=== PATIENT | female | born 1995 | race Caucasian/White ===

== ENCOUNTER 2020-07-09 17:50 | Emergency (ER) | payer MEDICAID, SELFPAY ==
--- NOTE | ~2020-07-09 | XR_ITS ---
XR chest 2V DATE: 07/09/2020 20:11 INDICATION: Central stabbing sternal chest pain for 3 days, radiating to upper abdomen TECHNIQUE: PA and lateral views COMPARISON: 07/26/2012 two-view chest FINDINGS: Normal heart size. No hilar or mediastinal enlargement. No pulmonary infiltrate or consolid ation, pleural effusion or pulmonary vascular congestion or pneumothorax. IMPRESSION: No active cardiopulmonary disease Reviewed, dictated and finalized at location A. N PROMOTIONS SPECIALIST
[2020-07-09 18:21] VITALS: BP 121/68; PULSE 125; RESP 16; TEMP 36.8; O2SAT 97
--- NOTE | 2020-07-09 18:25 | ECG_ITS ---
Measurements Intervals [place] Rate: 125 P: 75 ND: 124 QRS: 75 QRSD: 88 T: 20 QT: 336 QTc: 485 Interpretive Statements SINUS TACHYCARDIA INCOMPLETE RIGHT BUNDLE BRANCH BLOCK BORDERLINE ST-T WAVE ABNORMALITY- ANTEROLAT/INF LEADS ABNORMAL ECG Electronically Signed On 07-10-2020 7:55:40 DIGITAL TRAFFIC COORDINATOR by Kemal Hawkins D.O.
[2020-07-09 18:53] LABS: Partial Thromboplastin Time 27.2 SECONDS (22.3-36.8); Prothrombin Time 13.7 Seconds (11.1-14.7)
[2020-07-09 19:02] LABS: Anion Gap 11 mmol/L (8-16); Basophils Percent Auto 0.6 % (0.2-1.2); Blood Urea Nitrogen 11 mg/dL (7-17); Calcium 9.7 mg/dL (8.4-10.2); Carbon Dioxide 26 mmol/L (22-30); Chloride 101 mmol/L (98-107); Eosinophils Absolute Auto 0.1 K/mm3 (0-0.3); Estimated CRCL calculation 86 ml/min; Estimated Glomerular Filt Rate > 60; Glucose 107 mg/dL (65-105); Hematocrit 41.7 % (37.0-47.0); Hemoglobin 14.3 g/dL (12.0-15.0); Immature Granulocyte Absolute 0.02 K/mm3 (0.00-0.031); Immature Granulocyte Percent A 0.3 % (0-0.5); Lymphocytes Absolute Auto 1.87 K/mm3 (0.9-3.2); Lymphocytes Percent Auto 25.8 % (18.3-44.2); Mean Corpuscular HGB Conc 34.3 g/dl (32-36); Mean Corpuscular Hemoglobin 30.4 pg (26-34); Mean Corpuscular Volume 88.5 fl (80-100); Mean Platelet Volume 9.2 fl (7.4-10.4); Monocytes Absolute Auto 0.4 K/mm3 (0.1-0.6); Monocytes Percent Auto 5.9 % (2.6-8.5); Neutrophils Absolute Auto 4.8 K/mm3 (1.3-6.7); Neutrophils Percent Auto 66.4 % (45.5-73.1); Platelet Count Result 275 k/mm3 (150-375); Potassium 3.4 mmol/L (3.4-5.0); Red Blood Count 4.71 M/mm3 (4.2-5.4); Red Cell Distribution Width 11.9 % (11.5-14.5); Sodium 138 mmol/L (137-145); White Blood Count 7.2 K/mm3 (4.5-10.0)
[2020-07-09 19:14] LABS: Troponin I < 0.012 ng/mL (0.000-0.034)
[2020-07-09 21:28] LABS: D Dimer 0.29 ug/mL (<0.48)
[2020-07-09 21:52] LABS: Troponin I < 0.012 ng/mL (0.000-0.034)
--- NOTE | 2020-07-09 21:58 | ED.CHESTPAIN ---
HPI - Chest Pain General Chief Complaint: Chest Pain Stated Complaint: chest pain Time Seen by Provider: 07/09/20 20:57 History of Present Illness HPI narrative: Patient is a 25-year-old female who presents ER with central chest pressure. Ongoing for the last 2 days. Nonradiating. No worsening with exertion/movement/deep breath. No runny nose/sore throat/cough. No lower extremity swelling. She does not smoke and she is not on control. No history of PE. No modification with laying down. She took some heartburn medication which did not improve her symptoms either. Due to persistence came to the ER for evaluation. Related Data Allergies Allergy/AdvReac Type Severity Reaction Status Date / Time No Known Allergies Allergy Unverified 07/09/20 20:55 Review of Systems Review of Systems: All systems reviewed & are unremarkable except as noted in HPI and below Constitutional: Constitutional: Denies chills, Denies fever(s) and Denies weakness ENT: Denies nasal congestion and Denies sore throat Cardiovascular: Cardiovascular: Reports chest pain, Denies rapid heart rate and Denies radiating jaw, neck or arm pain Respiratory: Respiratory: Denies cough, Denies dyspnea and Denies wheezing Gastrointestinal: Gastrointestinal: Denies abdominal pain, Denies nausea and Denies vomiting Musculoskeletal: Musculoskeletal: Denies back pain PMFSH Past Medical History Medical History (Updated 07/09/20 @ 22:05 by Donaldo Hagan MD) POTS (postural orthostatic tachycardia syndrome) Surgical History Surgical History (Updated 07/09/20 @ 22:00 by Donaldo Hagan MD) No history of previous surgery Social History Social History (Updated 07/09/20 @ 22:00 by Donaldo Hagan MD) Smoking status: Never smoker Exam Narrative: Exam Narrative: GENERAL: Well-appearing, well-nourished, and in no acute distress. HEAD: Normocephalic, atraumatic. ENT: Mucous membranes moist. CHEST: Clear to auscultation. No respiratory distress. No reproducible tenderness. HEART: Regular rate and rhythm. Normal peripheral pulses. ABDOMEN: Soft, nontender, nondistended. EXTREMITIES: Normal range of motion. No edema. SKIN: Warm, dry, no rash. NEURO: Alert and oriented x3. Course Course Emergency Course: Patient resting comfortably. Declining IV fluids and pain medication. Troponin negative x2 and D-dimer also negative. Vital Signs Vital signs: Vital Signs Temperature 98.3 F 07/09/20 18:21 Pulse Rate 125 H 07/09/20 18:21 Respiratory Rate 16 07/09/20 18:21 Blood Pressure 121/68 07/09/20 18:21 Pulse Oximetry 97 07/09/20 18:21 Temperature 98.3 F 07/09/20 18:21 Pulse Rate 125 H 07/09/20 18:21 Respiratory Rate 16 07/09/20 18:21 Blood Pressure 121/68 07/09/20 18:21 Pulse Oximetry 97 07/09/20 18:21 MDM - Chest Pain Lab Data Result diagrams: 07/09/20 18:36 07/09/20 18:36 Labs: Lab Results 07/09/20 07/09/20 07/09/20 Range/Units 18:36 18:36 18:36 WBC 7.2 (4.5-10.0) K/mm3 RBC 4.71 (4.2-5.4) M/mm3 Hgb 14.3 (12.0-15.0) g/dL Hct 41.7 (37.0-47.0) % MCV 88.5 (80-100) fl MCH 30.4 (26-34) pg MCHC 34.3 (32-36) g/dl RDW 11.9 (11.5-14.5) % Plt Count 275 (150-375) k/mm3 MPV 9.2 (7.4-10.4) fl Immature Gran % (Auto) 0.3 (0-0.5) % Neut % (Auto) 66.4 (45.5-73.1) % Lymph % (Auto) 25.8 (18.3-44.2) % [place] % (Auto) 5.9 (2.6-8.5) % Eos % (Auto) 1.0 (0-4.4) % Baso % (Auto) 0.6 (0.2-1.2) % Lymph # (Auto) 1.87 (0.9-3.2) K/mm3 [place] # (Auto) 0.4 (0.1-0.6) K/mm3 Eos # (Auto) 0.1 (0-0.3) K/mm3 Baso # (Auto) 0.0 (0.0-0.1) K/mm3 Abs Immat Gran (auto) 0.02 (0.00-0.031) K/mm3 Absolute Neuts (auto) 4.8 (1.3-6.7) K/mm3 Absolute Nucleated RBC 0.0 (0.0-0.012) K/mm3 Nucleated RBC % 0.0 (0.0-0.2) % PT 13.7 (11.1-14.7) Seconds INR 1.0 APTT 27.2 (22.3-36.8) SECONDS
[2020-07-09 22:13] VITALS: BP 100/74; PULSE 92; RESP 22; TEMP 36.6; O2SAT 99
== END 2020-07-09 22:15 | disposition home or self-care (01) ==
PROVIDERS: Emergency Medicine; Emergency Provider Emergency Medicine; PCP Family Medicine
DX: R07.89 Other chest pain (principal); I49.8 Other specified cardiac arrhythmias; I45.10 Unspecified right bundle-branch block
CPT/HCPCS: 36415; 71046; 80048; 84484; 85025; 85380; 85610; 85730; 93005; 99284

== ENCOUNTER 2020-09-03 17:26 | Outpatient (CLI) | payer OTHER, SELFPAY ==
[2020-09-03 19:34] LABS: SARS-CoV-2 Ag Negative (Negative)
== END 2020-09-03 17:27 | disposition home or self-care (01) ==
LOC: CHSLAB 17:30
PROVIDERS: PCP Family Medicine; Visit Provider Family Medicine
DX: J00 Acute nasopharyngitis [common cold] (principal); Z20.822 Contact with and (suspected) exposure to COVID-19
CPT/HCPCS: 87426; C9803

== ENCOUNTER 2020-09-05 14:48 | Outpatient (CLI) | payer OTHER, SELFPAY ==
[2020-09-06 19:31] LABS: SARS-CoV-2 RNA PCR Positive
== END 2020-09-05 14:49 | disposition home or self-care (01) ==
LOC: CHSLAB 14:50
PROVIDERS: PCP Family Medicine; Visit Provider Family Medicine
DX: U07.1 COVID-19 (principal)
CPT/HCPCS: C9803; U0003

== ENCOUNTER 2021-06-18 15:31 | Outpatient (CLI) | payer OTHER, SELFPAY ==
[2021-06-18 16:57] LABS: SARS-CoV-2 RNA PCR Negative (Negative)
== END 2021-06-18 15:32 | disposition home or self-care (01) ==
LOC: CHSLAB 15:34
PROVIDERS: PCP Family Medicine; Visit Provider Nurse Practitioner Family
DX: Z20.822 Contact with and (suspected) exposure to COVID-19 (principal)
CPT/HCPCS: C9803; U0003; U0005

== ENCOUNTER 2021-08-26 07:56 | Outpatient (CLI) | payer OTHER, SELFPAY ==
--- NOTE | ~2021-08-26 | XR_ITS ---
EXAMINATION: XR chest 2V DATE: 08/26/2021 18:32 INDICATION: Shortness of breath and chest tightness TECHNIQUE: PA and lateral views of the chest are obtained. COMPARISON: 07/09/2020 FINDINGS: The lungs are free of acute opacities. There is no pleural effusion or pneumothorax. The ca rdiomediastinal silhouette is normal. The visualized bones and soft tissues are unremarkable. IMPRESSION: 1. No acute cardiopulmonary abnormality. Reviewed, dictated and finalized at location F. FING CLERK
[2021-08-26 09:46] LABS: Influenza Control Valid (Valid); SARS-CoV-2 Ag Negative (Negative)
== END 2021-08-26 07:57 | disposition home or self-care (01) ==
LOC: CHSLAB 07:59 → CHSIMG 18:19
PROVIDERS: PCP Family Medicine; Visit Provider Family Medicine
DX: R06.00 Dyspnea, unspecified (principal); Z20.822 Contact with and (suspected) exposure to COVID-19
CPT/HCPCS: 71046; 87426; 87804; C9803

== ENCOUNTER 2021-09-03 09:10 | Outpatient (CLI) | payer OTHER, SELFPAY ==
[2021-09-03 10:31] LABS: SARS-CoV-2 Ag Negative (Negative)
== END 2021-09-03 09:11 ==
PROVIDERS: PCP Family Medicine; Visit Provider Family Medicine
DX: Z20.822 Contact with and (suspected) exposure to COVID-19 (principal)
CPT/HCPCS: 99199; 87426; C9803

== ENCOUNTER 2022-08-11 16:13 | Emergency (ER) | payer OTHER, SELFPAY ==
--- NOTE | ~2022-08-11 | CT_ITS ---
EXAMINATION: CT abdomen pelvis wo con DATE: 08/11/2022 17:21 INDICATION: LLQ pain/left flank pain TECHNIQUE: Computed tomography (CT) of the abdomen and pelvis was performed without intravenous contr ast. Automated exposure control and iterative reconstruction technique were employed. The dose-length product was 177.64 mGy-cm. COMPARISON: 04/23/2018. FINDINGS: Lower thorax: Unremarkable Liver: Normal. Biliary/Gallbladder: Partially contracted No bile duct dilation. Pancreas: No mass or duct dilation. Spleen: Normal. Adrenals:No mass. Kidneys: No mass, stone, or hydronephrosis. GI tract: No small or large bowel dilation. Normal appendix. Mild wall edema at the hepatic flexure a nd transverse colon. Mesentery/Peritoneum: No ascites, mass, or free air. Retroperitoneum: No mass. Pelvis: Pelvic organs are within normal limits. The bladder is empty. Small volume free pelvic fluid, within physiologic limits. The distal ureters are poorly visualized. Soft Tissues: Soft tissues and body wall unremarkable. Bones: No acute osseous finding. IMPRESSION: Mild colonic wall edema at the hepatic flexure and transverse colon which may reflect colitis in the appropriate clinical context. Otherwise, no acute abdominopelvic process detected. Note, the distal u reters are poorly visualized, but there is no evidence of proximal obstructive uropathy or definite c alcification in the expected pathway of the ureters. Reviewed, dictated and finalized at location K. OSAL MAN IMPRESSION: Mild colonic wall edema at the hepatic flexure and transverse colon which may r eflect colitis in the appropriate clinical context. Otherwise, no acute abdomin opelvic process detected. Note, the distal ureters are poorly visualized, but t here is no evidence of proximal obstructive uropathy or definite calcification in the expected pathway of the ureters.
[2022-08-11 16:26] VITALS: BP 128/97; PULSE 122; RESP 16; TEMP 36.8; O2SAT 100
--- NOTE | 2022-08-11 16:29 | ED.ABDPAIN ---
HPI - Abdominal Pain General Chief Complaint: Abdominal Pain Stated Complaint: left flank pain Time Seen by Provider: 08/11/22 16:27 History of Present Illness HPI narrative: 7-year-old female history of ovarian cysts presents to the emergency room for evaluation of left lower quadrant pain has been present since Tuesday. States the pain is similar to when she has had ovarian cyst in the past. States pain radiates into her lower back. Denies any dysuria, hematuria, difficulty urinating. States the pain is worse at night, and has endorsed 1 episode of emesis yesterday. Denies taking any medications for to alleviate her pain. Reports regular bowel movements, no diarrhea. Denies fevers. Related Data Allergies Allergy/AdvReac Type Severity Reaction Status Date / Time No Known Allergies Allergy Unverified 08/11/22 16:32 Review of Systems Review of Systems: CONSTITUTIONAL: Denies fever, chills, or sweats. EYES: Denies visual changes, redness, or discharge. ENT: Denies rhinorrhea, congestion, sore throat, or otalgia. CARDIOVASCULAR: Denies chest pain, palpitations, or edema. RESPIRATORY: Denies cough or dyspnea. GASTROINTESTINAL: Reports abdominal pain, occasional nausea GENITOURINARY: Denies dysuria or hematuria. SKIN: Denies rash or itching. MUSCULOSKELETAL: Denies back pain, joint pain, or myalgia. NEUROLOGIC: Denies headache, numbness, dizziness, or weakness. PSYCHIATRIC: Denies anxiety or depression. PMFSH Past Medical History Medical History POTS (postural orthostatic tachycardia syndrome) Surgical History Surgical History No history of previous surgery Social History Social History Smoking status: Never smoker Exam Narrative: GENERAL: Well-appearing, well-nourished, no physical limitations, and in no acute distress. HEAD: Normocephalic, atraumatic. EYES: Conjunctivae normal, PERRLA and EOMI. CHEST: Clear to auscultation. No respiratory distress. No wheezes rales or rhonchi. HEART: Regular rate and rhythm. No murmur heard. Normal peripheral pulses. ABDOMEN: Soft, nontender, LLQ tenderness, nondistended, normal active bowel sounds. BACK: No CVA tenderness EXTREMITIES: Normal range of motion. No edema. No clubbing or cyanosis SKIN: Warm, dry, no rash. No noted wounds NEURO: No focal deficits. Alert and oriented x3. MAEW. CN's II-XI intact bilaterally, normal gait PSYCH: Cooperative. Normal mood and affect. Course Vital Signs Vital signs: Vital Signs Temperature 36.8 C 08/11/22 16:26 Pulse Rate 122 H 08/11/22 16:26 Respiratory Rate 16 08/11/22 16:26 Blood Pressure 128/97 H 08/11/22 16:26 Pulse Oximetry 100 08/11/22 16:26 Oxygen Delivery Room Air 08/11/22 16:26 Temperature 36.8 C 08/11/22 16:26 Pulse Rate 122 H 08/11/22 16:26 Respiratory Rate 16 08/11/22 16:26 Blood Pressure 128/97 H 08/11/22 16:26 Pulse Oximetry 100 08/11/22 16:26 Oxygen Delivery Room Air 08/11/22 16:26 MDM - Abdominal Pain MDM Narrative Medical decision making narrative: 27-year-old female presents to the emergency room with a lower left quadrant abdominal pain that radiated to her left flank. Abdominal exam showed no signs of peritonitis. CT scan shows no acute appendectomy or signs of diverticulitis. Patient is nontoxic and well-appearing. No concerns over STDs, patient denied vaginal discharge. Work-up showed a low suspicion for hepatobiliary disease or pancreatitis. CT scan showed evidence of colitis. Patient was given dose of Toradol, said that her pain was resolved. We will send patient home with anti-inflammatories and follow-up with her primary care provider. Lab Data 08/11/22 16:41 08/11/22 16:41 Labs: Lab Results 08/11/22 08/11/22 08/11/22 Range/Units 16:41 16:41 16:41 WBC
[2022-08-11 16:53] LABS: Basophils Percent Auto 0.8 % (0.2-1.2); Eosinophils Absolute Auto 0.1 K/mm3 (0-0.3); Eosinophils Percent Auto 2.2 % (0-4.4); Hematocrit 40.8 % (37.0-47.0); Immature Granulocyte Absolute 0.01 K/mm3 (0.00-0.031); Immature Granulocyte Percent A 0.2 % (0-0.5); Lymphocytes Absolute Auto 1.82 K/mm3 (0.9-3.2); Lymphocytes Percent Auto 37.1 % (18.3-44.2); Mean Corpuscular HGB Conc 34.3 g/dl (32-36); Mean Corpuscular Hemoglobin 30.4 pg (26-34); Mean Corpuscular Volume 88.5 fl (80-100); Mean Platelet Volume 9.8 fl (7.4-10.4); Monocytes Absolute Auto 0.4 K/mm3 (0.1-0.6); Monocytes Percent Auto 8.1 % (2.6-8.5); Neutrophils Absolute Auto 2.5 K/mm3 (1.3-6.7); Neutrophils Percent Auto 51.6 % (45.5-73.1); Platelet Count Result 256 k/mm3 (150-375); Red Blood Count 4.61 M/mm3 (4.2-5.4); Red Cell Distribution Width 12.9 % (11.5-14.5); White Blood Count 4.9 K/mm3 (4.5-10.0)
[2022-08-11 16:58] LABS: Add Urine Microscopic? YES; Appearance Urine Clear (Clear); Bilirubin Urine Negative (Negative); Blood Urine Negative (Negative); Color Urine Light Yellow (Yellow); Glucose Urine UA Negative (Negative); Ketones Urine Trace mg/dL (Negative); Leukocyte Esterase Ur Negative LEU/UL (Negative); Nitrate Urine Negative (Negative); Protein Urine Negative (Negative); Specific Grav Ur >= 1.030 (1.001-1.035); Urobilinogen Urine 0.2 mg/dL (<2.0); pH Urine 5.5 (5.0-9.0)
[2022-08-11 17:02] LABS: Mucus Urine Few /lpf; RBC Urine 0-2 /hpf (0-2); Squamous Epithelial Cell Urine Few /hpf (Few); WBC Urine 0-3 /hpf
[2022-08-11 17:11] LABS: Pregnancy On Board Control Positive; Urine Pregnancy Test Negative
[2022-08-11] MEDS: KETOROLAC 30 MG/ML VIAL (*BKC) IV PUSH (18:27)
== END 2022-08-11 19:07 | disposition home or self-care (01) ==
PROVIDERS: Emergency Provider Nurse Practitioner Family; PCP Family Medicine
DX: K52.9 Noninfective gastroenteritis and colitis, unspecified (principal)
CPT/HCPCS: 36415; 74176; 81001; 81025; 85025; 96374; 99284; J1885

== ENCOUNTER 2022-08-12 11:10 | Outpatient (CLI) | payer OTHER, SELFPAY ==
[2022-08-12 11:38] LABS: Hematocrit 38.4 % (35.0-49.0); Mean Corpuscular HGB Conc 33.9 g/dL (32.0-36.0); Mean Corpuscular Volume 88.5 fL (78.0-102.0); Mean Platelet Volume 9.5 fl (9.2-11.8); Platelet Count Result 204 K/mm3 (150-420); Red Blood Count 4.34 M/mm3 (4.20-5.40); Red Cell Distribution Width 12.5 % (11.6-14.4); White Blood Count 3.5 K/mm3 (4.8-10.8)
[2022-08-12 11:39] LABS: Add Urine Microscopic? YES; Appearance Urine Clear (Clear); Bilirubin Urine Negative (Negative); Blood Urine Negative (Negative); Color Urine Yellow (Yellow); Glucose Urine UA Negative (Negative); Ketones Urine Trace (Negative); Leukocyte Esterase Ur Negative (Negative); Nitrate Urine Negative (Negative); Protein Urine Negative (Negative); Specific Grav Ur >= 1.030 (1.010-1.020); Urobilinogen Urine 0.2 mg/dL (0.2-1.0)
[2022-08-12 11:45] LABS: Bacteria Urine 1+ /hpf; Mucus Urine Moderate /lpf; RBC Urine 0-2 /hpf (0-2); Squamous Epithelial Cell Urine Moderate /hpf (Few); WBC Urine 0-3 /hpf (0-3)
[2022-08-12 12:21] LABS: Alanine Aminotransferase 12 U/L (14-59); Albumin Level 4.1 g/dL (3.4-5.0); Alkaline Phosphatase 53 U/L (46-116); Amylase 81 U/L (25-115); Anion Gap 7 mmol/L (8-16); Aspartate Amino Transferase 11 U/L (15-37); Bilirubin,Total 0.6 mg/dL (0.00-1.00); Blood Urea Nitrogen 11 mg/dL (7-18); Carbon Dioxide 27 mmol/L (21-32); Chloride 104 mmol/L (98-108); Estimated Glomerular Filt Rate > 60; Glucose 84 mg/dL (70-99); Lipase 64 U/L (73-393); Osmolality Calculated 284 mOsm/kg (285-295); Sodium 138 mmol/L (136-145); Total Protein 7.1 g/dL (6.4-8.2)
[2022-08-12 12:28] LABS: Neutrophils Percent Manual 58 % (46-73); Total Cells Counted 100
[2022-08-12 12:29] LABS: Band Neutrophils Percent 0 % (0-6); Basophils Absolute Manual 0.03 K/mm3 (0-0.1); Basophils Percent Manual 1 % (0-1); Eosinophils Absolute Manual 0.07 K/mm3 (0.02-0.5); Eosinophils Percent Manual 2 % (1-6); Lymphocytes Absolute Manual 1.08 K/mm3 (1.1-4.5); Lymphocytes Percent Manual 31 % (18-44); Monocytes Absolute Manual 0.28 K/mm3 (0.1-0.90); Monocytes Percent Manual 8 % (3-9); Neutrophils Absolute Manual 2.03 K/mm3 (1.7-7.2); Platelet Estimate Adequate (Adequate)
== END 2022-08-12 11:11 | disposition home or self-care (01) ==
LOC: CHSLAB 11:12
PROVIDERS: PCP Family Medicine; Visit Provider Family Medicine
DX: R10.84 Generalized abdominal pain (principal)
CPT/HCPCS: 36415; 80053; 81001; 82150; 83690; 85025